=== PATIENT | male | born 1995 | race Caucasian/White ===

== ENCOUNTER 2016-10-29 16:35 | Emergency (ER) | payer BC ==
[~2016-10-29] VITALS: Ht 175.3 cm; Wt 78.2 kg
[2016-10-29 16:43] VITALS: BP 149/90; PULSE 77; TEMP 37; O2SAT 97; Ht 175.3 cm; Wt 78.2 kg
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
== END 2016-10-29 18:00 | disposition home or self-care (01) ==
LOC: C.EDB 16:39 → C.EDD 18:00
DX: S40.011A Contusion of right shoulder, initial encounter (principal); V10.0XXA Pedal cycle driver injured in collision with pedestrian or animal in nontraffic accident, initial encounter